=== PATIENT | male | born 1970 | race African-American/Black ===

== ENCOUNTER 2021-10-19 11:00 | Emergency (ER) | payer SELFPAY ==
[~2021-10-19] VITALS: Ht 172.7 cm; Wt 61.3 kg
--- NOTE | 2021-10-19 15:49 | PHYS DOC ---
General Adult EDM: Chief Complaint: MECHANICAL FALL HPI: HPI: Patient is a 51 year old male who presents with since Wednesday he was moving around the couch and he tripped and he fell again on his right knee and now he is having burning discomfort in the knee. He states he has been up and walking on the knee. He rates it a 4 out of 10. He has had had a past surgery and states he has a soham in that leg from 2008 when he was dancing and had a twist type break. Patient states he also slammed his index or middle finger in the car door approximately a week ago but he still having slight pain to the right index finger. Patient has no primary care physician. He denies swelling, fever, focal weakness, joint laxity. Review of Systems: Review of Systems: Constitutional: Denies fever or chills. [] Eyes: Denies change in visual acuity. [] HENT: Denies nasal congestion or sore throat. [] Respiratory: Denies cough or shortness of breath. [] Cardiovascular: Denies chest pain or edema. [] GI: Denies abdominal pain, nausea, vomiting, bloody stools or diarrhea. [] : Denies dysuria. [] Musculoskeletal: Denies back pain or + right knee joint pain. + Right hand [] Integument: Denies rash. [] Neurologic: Denies headache, focal weakness or sensory changes. [] Endocrine: Denies polyuria or polydipsia. [] Lymphatic: Denies swollen glands. [] Psychiatric: Denies depression or anxiety. [] Heart Score: C/O Chest Pain: No Physical Exam: PE: Constitutional: Well developed, well nourished, no acute distress, non-toxic appearance. [] HENT: Normocephalic, atraumatic, bilateral external ears normal, oropharynx moist, no oral exudates, nose normal. [] Eyes: PERRLA, EOMI, conjunctiva normal, no discharge. [] Neck: Normal range of motion, no tenderness, supple, no stridor. [] Cardiovascular:Heart rate regular rhythm, no murmur [] Lungs & Thorax: Bilateral breath sounds clear to auscultation [] Abdomen: Bowel sounds normal, soft, no tenderness, no masses, no pulsatile masses. [] Skin: Warm, dry, no erythema, no rash. [] Back: No tenderness, no CVA tenderness. [] Extremities: right knee tenderness, no cyanosis, no clubbing, ROM intact, no edema. Right index finger PIP small bump.[] Neurologic: Alert and oriented X 3, normal motor function, normal sensory function, no focal deficits noted. [] Psychologic: Affect normal, judgement normal, mood normal. [] EKG: EKG: [] Radiology/Procedures: Radiology/Procedures: [] Impression: [facility] [address] [place] [address] IMAGING REPORT Signed PATIENT: LOLLY GAXIOLA ACCOUNT: [id number] : 1970 LOCATION: ER AGE: 51 SEX: M EXAM STATUS: REG ER ORD. PHYSICIAN: MT JOYCE APRN REASON: SLIPPED, FELL, PAIN ON DORSAL KNEE PROCEDURE: KNEE RIGHT 4V XR HAND_RIGHT 3 VIEWS, XR KNEE 4 VIEWS WITH PATELLA_RT Clinical indications: Reason: SMASHED IN CAR DOOR, 1ST-3RD digit pain right hand. Slipped and fell pain with dorsal right knee Right hand:: No acute fracture or dislocation or osteolytic process is evident. Right knee: Intramedullary soham is seen within the right tibia. No acute fracture or dislocation or lytic process is seen. The patella is normally aligned. No right knee joint effusion is seen. IMPRESSION: No acute osseous abnormality is evident. Electronically signed by: Princess Vasquez MD (10/19/2021 4:39 PM) [id number] DICTATED and SIGNED BY: PRINCESS VASQUEZ MD DATE: 10/19/21 [id number] 0 Course & Med Decision Making: Course & Med Decision Making Pertinent Labs and Imaging studies reviewed. (See chart for details) See HPI. Alert and oriented x4. Ambulatory steady gait. Speaks in full clear sentences. Skin pink warm and dry. No swelling to the knee, deformity, redness, heat. Full range of motion of the joint. Full strengths. No joint laxity. Pedal pulse strong and present. Cap refill less than 2 seconds. Right index finger he states is slightly numb and tingly since being slammed in the car door but he has a slight bump at the PIP joint but has full range of motion and strength. No redness to the finger joint or tenderness. No joint laxity. Radial pulse strong are present. Cap refill less than 2 seconds. Has not taken anything for pain. He states that it is not really hurting, is just more of a discomfort. Patient has no signs of trauma to his body or any joints congruent with his claim of injuries today. No bruising, laceration, abrasions. [] Dragon Disclaimer: Dragon Disclaimer: This electronic medical record was generated, in whole or in part, using a voice recognition dictation system. Departure Departure Impression: Primary Impression: Fall Qualified Codes: W19.XXXA - Unspecified fall, initial encounter Additional Impressions: Knee pain, right Qualified Codes: M25.561 - Pain in right knee Hand pain, right Disposition: 01 HOME / SELF CARE / HOMELESS Condition: STABLE Referrals: NO PCP (PCP) JUSTINO CHAVEZ Jr. DO Patient Instructions: Contusion, Crush Injury, Fingers or Toes, Knee Pain Additional Instructions: Follow-up with primary care provider or the orthopedic I have referred you to. Use ice and elevation. Rest the extremity. Use ibuprofen to help with your pain. If the joint becomes red and very swollen or you start running a fever return emergency room. Scripts Diclofenac Sodium (DICLOFENAC SODIUM) 50 Mg Tablet. 1 TAB PO BID for 10 Days, #20 TAB 1 Refill Prov: MT JOYCE APRN 10/19/21 MT JOYCE APRN Oct 19, 2021 15:49
--- NOTE | 2021-10-19 16:41 | RAD ---
XR HAND_RIGHT 3 VIEWS, XR KNEE 4 VIEWS WITH PATELLA_RT Clinical indications: Reason: SMASHED IN CAR DOOR, 1ST-3RD digit pain right hand. Slipped and fell pa in with dorsal right knee Right hand:: No acute fracture or dislocation or osteolytic process is evident. Right knee: Intramedullary soham is seen within the right tibia. No acute fracture or dislocation or ly tic process is seen. The patella is normally aligned. No right knee joint effusion is seen. IMPRESSION: No acute osseous abnormality is evident. Electronically signed by: Michael Vasquez MD (10/19/2021 4:39 PM) [id number]
[2021-10-19] MEDS ORDERED: DICL50TA4 PO (16:54)
[2021-10-19 17:14] VITALS: BP 124/73
== END 2021-10-19 17:17 | disposition home or self-care (01) ==
LOC: ER 11:00
DX: M25.561 Pain in right knee (principal); M79.641 Pain in right hand; G89.11 Acute pain due to trauma; W01.0XXA Fall on same level from slipping, tripping and stumbling without subsequent striking against object, initial encounter; Y93.89 Activity, other specified; Y92.89 Other specified places as the place of occurrence of the external cause; Y99.8 Other external cause status
CPT/HCPCS: 73130; 73564; 99284